=== PATIENT | female | born 1970 | race Caucasian/White ===

== ENCOUNTER 2017-12-22 11:46 | Emergency (ER) | payer MEDICAID ==
[2017-12-22 12:20] LABS: URINE BLOOD (Dip) POC 2+ (NEGATIVE); URINE GLUCOSE (Dip) POC Negative (NEGATIVE); URINE KETONES (Dip) POC 2+ (NEGATIVE); URINE LEUKOCYTE EST (Dip) POC Negative (NEGATIVE); URINE NITRITE (Dip) POC Negative (NEGATIVE); URINE TOTAL PROTEIN POC 1+ (NEGATIVE)
[2017-12-22 12:20] LABS: URINE PH (Dip) POC 5.5 (5.0-8.5)
[2017-12-22] MEDS: DEXAMETHASONE 10 MG/ML 1 ML INJ PO (12:26)
[2017-12-22] MEDS: KETOROLAC 60 MG INJ IM (12:27)
[2017-12-22] MEDS: DIAZEPAM 5 MG TAB PO (12:27)
== END 2017-12-22 13:05 | disposition home or self-care (01) ==
LOC: FTE 11:46
DX: M54.5 Low back pain (principal)
CPT/HCPCS: 81003; 81025; 96372; 99284-25